=== PATIENT | female | born 1960 | race African-American/Black ===

== ENCOUNTER → 2016-10-18 | Outpatient (CLI) | payer OTHER ==
[~2016-10-18] MED LIST: ACTOS30 MG PO; ALDACTONE25 MG PO; ANORO ELLIPTA1 EACH IH; ASPIR-TRIN325 MG PO; ASPIRIN EC325 MG PO; ATROVENT 00.5 MG/2.5 IH; AZITHROMYCIN250 MG PO; BENTYL10 MG PO; CATAPRES0.1 MG PO; CEFTIN500 MG PO; CELEXA40 MG PO; CLINDAMYCIN HC300 MG PO; COREG CR40 MG PO; CYCLOBENZAPRINE10 MG PO; CYMBALTA60 MG PO; DULERA 100 MCG/13 GM IH; ENDOCET 5-3251 EACH PO; ERGOCALCIF50000 UNIT PO; FANATREX25 MG/1 ML PO; FLONASE16 G1 BOTH NARES; FUROSEMIDE20 MG PO; GABAPENTIN300 M1 PO; GLUCOPHAGE1000 MG PO; HUMALOG100 UNIT/1 SC; HYDROCHLOROTHIA25 MG PO; IRON325 M1 PO; JANUMET 50/11 TABLET PO; JANUVIA25 M1 PO; K-DUR20 MEQ PO; LANTUS 10100 UNITS/ SC; LANTUS 3 M100 UNITS1 SQ; LANTUS100 UNIT/2 SQ; LEVAQUIN500 MG PO; LEVEMIR FL100 UNIT/1 SC; LISINOPRIL10 MG PO; LORAZEPAM0.5 MG PO; METFORMIN HCL1000 MG PO; METOPROLOL SUCC25 MG PO; MINOXIDIL2.5 MG PO; MOBIC15 MG PO; NEURONTIN600 MG PO; NICODERM CQ1 EACH TD; NIFEDIPINE ER30 MG PO; NORVASC5 MG PO; NOVOLOG 10100 UNITS/ SC; NOVOLOG PE100 UNITS/ SC; NOVOLOG100 UNIT/3 SQ; OMEPRAZOLE20 MG PO; OMEPRAZOLE40 M1 PO; OPANA ER5 MG PO; OXYCODONE HCL10 MG PO; OXYCODONE HCL5 MG PO; OXYCONTIN10 MG PO; PEPCID40 MG PO; PERCOCET 10/1 TABLET PO; PRAVACHOL40 MG PO; PROTONIX40 MG PO; PROVENTIL,2.5 MG/3 M IH; REGLAN10 MG PO; SIMVASTATIN40 M1 PO; SIMVASTATIN40 MG PO; TRAMADOL HCL50 MG PO; TRAZODONE HCL50 MG PO; VICODIN 5-3001 EACH PO; VICOPROFEN1 TABLET PO; VITAMIN D250000 UNIT PO; WELLBUTRIN XL150 MG PO; XYZAL5 MG PO; ZANTAC300 MG PO; ZESTRIL,PRINIVI40 MG PO; ZESTRIL20 MG PO; ZESTRIL40 MG PO
== END | disposition home or self-care (01) ==
LOC: NUC 09:00
DX: R68.81 Early satiety (principal)
CPT/HCPCS: 78264; A9541

== ENCOUNTER 2018-04-17 16:55 | Emergency (ER) | payer OTHER ==
[~2018-04-17] VITALS: Ht 180.3 cm; Wt 130.9 kg
[2018-04-17 17:54] LABS: HEMATOCRIT 39.1 % (36.0-46.0); HEMOGLOBIN 13.3 G/DL (11.9-15.5); PLATELET COUNT 229 K/uL (156-360); RBC DIS.WIDTH-CV 13.4 % (11.8-14.6); RED BLOOD COUNT 4.16 M/uL (3.80-5.20); WHITE BLOOD COUNT 7.7 K/uL (4.1-10.2)
[2018-04-17 18:00] LABS: INTER. NORMALIZED RATIO 1.1
[2018-04-17 18:02] LABS: ALBUMIN 3.5 g/dL (3.2-4.8); PTT 28.6 SEC (25-37)
[2018-04-17 18:03] LABS: CHLORIDE 104 mEq/L (99-109); POTASSIUM 4.2 mEq/L (3.7-5.4); SODIUM 140 mEq/L (136-147)
[2018-04-17 18:05] LABS: GLUCOSE 184 mg/dL (70-99); TOTAL PROTEIN 6.3 g/dL (6.4-8.3)
[2018-04-17 18:07] LABS: TOTAL BILIRUBIN 0.2 mg/dL (0.0-1.0)
[2018-04-17 18:08] LABS: ALKALINE PHOSPHATASE 84 IU/L (3-129)
[2018-04-17 18:09] LABS: CREATININE 1.2 mg/dL (0.6-1.3); GFR ESTIMATE (CALCULATED) > 59 mL/min/
[2018-04-17 18:10] LABS: AST (GOT) 19 IU/L (2-34); UREA NITROGEN (BUN) 11 mg/dL (9-23)
[2018-04-17 18:11] LABS: ALT (GPT) 21 IU/L (3-49)
[2018-04-17] MEDS ORDERED: PERCOCET 5/31 TABLET PO (21:47)
[2018-04-17 21:57] VITALS: BP 170/72
== END 2018-04-17 21:58 | disposition home or self-care (01) ==
LOC: EME 16:55
PROVIDERS: Nurse Practitioner Family
DX: I70.201 Unspecified atherosclerosis of native arteries of extremities, right leg (principal); E11.319 Type 2 diabetes mellitus with unspecified diabetic retinopathy without macular edema; E11.40 Type 2 diabetes mellitus with diabetic neuropathy, unspecified; I10 Essential (primary) hypertension; Z86.73 Personal history of transient ischemic attack (TIA), and cerebral infarction without residual deficits; F32.9 Major depressive disorder, single episode, unspecified; J45.909 Unspecified asthma, uncomplicated; K21.9 Gastro-esophageal reflux disease without esophagitis; Z96.653 Presence of artificial knee joint, bilateral; Z79.84 Long term (current) use of oral hypoglycemic drugs; Z88.2 Allergy status to sulfonamides; Z88.5 Allergy status to narcotic agent; F17.200 Nicotine dependence, unspecified, uncomplicated; E78.5 Hyperlipidemia, unspecified
CPT/HCPCS: 80053; 85027; 85610; 85730; 99281; 99284